=== PATIENT | male | born 1995 | race Caucasian/White ===

== ENCOUNTER 2024-03-19 21:05 | Emergency (ER) | payer MEDICAID ==
[~2024-03-19] VITALS: Ht 165.1 cm; Wt 72.7 kg
[~2024-03-19 21:05] MED LIST: NOCURR
[2024-03-19 21:27] VITALS: BP 137/87; PULSE 88; RESP 18; TEMP 98.1; O2SAT 98
== END 2024-03-19 23:20 | disposition left against medical advice (07) ==
LOC: EMS 21:05
DX: R59.0 Localized enlarged lymph nodes (principal); Z53.21 Procedure and treatment not carried out due to patient leaving prior to being seen by health care provider

== ENCOUNTER 2024-03-30 04:01 | Emergency (ER) | payer MEDICAID ==
[~2024-03-30] VITALS: Ht 172.7 cm; Wt 75.0 kg
[2024-03-30 04:11] VITALS: BP 181/109; PULSE 122; RESP 18; TEMP 98.2; O2SAT 99
== END 2024-03-30 05:46 | disposition home or self-care (01) ==
LOC: EMS 04:03
DX: N52.9 Male erectile dysfunction, unspecified (principal); R07.89 Other chest pain; I10 Essential (primary) hypertension; F17.210 Nicotine dependence, cigarettes, uncomplicated; Z86.19 Personal history of other infectious and parasitic diseases
CPT/HCPCS: 99281; Z7502

== ENCOUNTER 2024-03-30 07:00 | Emergency (ER) | payer MEDICAID ==
[~2024-03-30] VITALS: Ht 172.7 cm; Wt 75.0 kg
[2024-03-30 07:17] VITALS: BP 150/97; PULSE 98; RESP 16; TEMP 98.2; O2SAT 99
== END 2024-03-30 08:01 | disposition home or self-care (01) ==
LOC: EMS 07:03
DX: N52.9 Male erectile dysfunction, unspecified (principal); I10 Essential (primary) hypertension; F17.210 Nicotine dependence, cigarettes, uncomplicated; Z86.19 Personal history of other infectious and parasitic diseases
CPT/HCPCS: 99281; Z7502

== ENCOUNTER 2024-04-02 05:34 | Emergency (ER) | payer MEDICAID | END 2024-04-02 05:41 | disposition left against medical advice (07) | LOC: EMS 05:36 | DX: R06.02 Shortness of breath (principal); Z53.21 Procedure and treatment not carried out due to patient leaving prior to being seen by health care provider ==

== ENCOUNTER 2024-04-07 12:10 | Emergency (ER) | payer MEDICAID ==
[~2024-04-07] VITALS: Ht 172.7 cm; Wt 75.0 kg
[2024-04-07 12:19] VITALS: TEMP 98.7
[2024-04-07 13:14] LABS: BASOPHILS % (AUTO) 0.9 % (0.0-2.0); EOSINOPHILS % (AUTO) 2.6 % (1.0-6.0); HEMATOCRIT 43.6 % (41-53); HEMOGLOBIN 14.6 g/dL (13.5-17.5); LYMPHOCYTES # (AUTO) 1.7 K/uL (1.0-4.8); LYMPHOCYTES % (AUTO) 41.3 % (22.0-44.0); MEAN CORPUSCULAR HEMOGLOBIN 30.8 pg (26.0-34.0); MEAN CORPUSCULAR HGB CONC 33.5 G/dL (31.0-37.0); MEAN CORPUSCULAR VOLUME 92 fL (80-100); MONOCYTES # (AUTO) 0.4 K/uL (0.1-1.0); MONOCYTES % (AUTO) 10.5 % (2.0-9.0); NEUTROPHILS # (AUTO) 1.9 K/uL (1.8-7.7); NEUTROPHILS % (AUTO) 44.7 % (40.0-70.0); PLATELET COUNT (AUTO) 225 K/uL (150-450); RED BLOOD CELL COUNT(AUTO) 4.74 MIL/uL (4.50-5.90); RED CELL DISTRIBUTION WIDTH 13.8 % (11.5-14.5); WHITE BLOOD COUNT (AUTO) 4.2 K/uL (4.5-11.0)
[2024-04-07 13:32] LABS: ANION GAP 6 mmol/L (8-16); CALCIUM, TOTAL 8.8 mg/dL (8.8-10.5); CARBON DIOXIDE 31 mmol/L (22-29); CHLORIDE 102 mmol/L (98-107); CREATININE 0.94 mg/dL (0.60-1.30); GLOMERULAR FILTR. RATE CALC > 60 mL/min (>60); GLUCOSE,RANDOM 84 mg/dL (70-110); POTASSIUM 4.2 mmol/L (3.5-5.1); SODIUM SERUM 139 mmol/L (136-145); UREA NITROGEN, BLOOD 13 mg/dL (7-18)
[2024-04-07 13:37] LABS: ALANINE AMINOTRANSFERASE 25 U/L (12-78); ALBUMIN 3.2 g/dL (3.4-5.0); ALKALINE PHOSPHATASE 79 U/L (46-116); ASPARTATE AMINOTRANSFERASE 16 U/L (15-37); BILIRUBIN,TOTAL 0.2 mg/dL (0.1-1.0)
[2024-04-07 14:53] LABS: APPEARANCE,URINE CLEAR (CLEAR); BILIRUBIN,URINE NEGATIVE (NEGATIVE); COLOR,URINE YELLOW (YELLOW); GLUCOSE, URINE (UA) NEGATIVE (NEGATIVE); KETONES,URINE NEGATIVE (NEGATIVE); LEUKOCYTE ESTERASE ,URINE NEGATIVE (NEGATIVE); NITRATE,URINE NEGATIVE (NEGATIVE); OCCULT BLOOD,URINE NEGATIVE (NEGATIVE); PH,URINE 5.5 (5.0-8.0); PROTEIN,URINE NEGATIVE (NEGATIVE); SPECIFIC GRAVITIY, URINE 1.026 (1.003-1.030); UROBILINOGEN,URINE <=1.0 mg/dL (<=1.0)
[2024-04-07] MEDS ORDERED: 0.9% SODIUM CHLORIDE 10 ML SYRINGE IVP ONE (14:55)
[2024-04-07] MEDS: KETOROLAC TROMETHAMINE 30 MG/ML VIAL IVP ONE (14:55)
[2024-04-07] MEDS: ONDANSETRON HCL 4 MG/2 ML VIAL IVP ONE (14:55)
[2024-04-07] MEDS ORDERED: IOHEXOL 350 MG/ML 100 ML VIAL ONE (14:55)
[2024-04-07] MEDS: SODIUM CHLORIDE 0.9% 1,000 ML IV ONE (14:55)
[2024-04-07 15:07] LABS: LIPASE 103 U/L (16-77)
[2024-04-07 16:45] VITALS: BP 115/66; PULSE 63; RESP 16; O2SAT 99
[2024-04-07] MEDS ORDERED: DOCU-385 PO (17:01)
[2024-04-07] MEDS: DOCUSATE SODIUM 100 MG CAPSULE PO ONE (17:07)
[2024-04-08 08:06] LABS: HEPATITIS A ANTIBODY IGM Negative (Negative); HEPATITIS B CORE IGM Negative (Negative)
== END 2024-04-07 17:27 | disposition home or self-care (01) ==
LOC: EMS 13:17
DX: R10.31 Right lower quadrant pain (principal); I10 Essential (primary) hypertension; F17.210 Nicotine dependence, cigarettes, uncomplicated; Z86.19 Personal history of other infectious and parasitic diseases
CPT/HCPCS: 99285; 74177; 96374; 96361; 96375; 80053; 81003; 83690; 85025; 36415; 80074; J1885; Q9967; J2405; J7030

== ENCOUNTER 2024-05-19 07:08 | Emergency (ER) | payer MEDICAID ==
[~2024-05-19] VITALS: Ht 172.7 cm; Wt 90.0 kg
[~2024-05-19 07:08] MED LIST changes: +DOCU-385 PO
[2024-05-19 07:12] VITALS: TEMP 98.3
[2024-05-19] MEDS ORDERED: ACET-66 PO (07:22)
[2024-05-19] MEDS ORDERED: GUAIFDM PO (07:22)
[2024-05-19] MEDS ORDERED: IBUP-1554 PO (07:22)
[2024-05-19] MEDS ORDERED: CEPH-558 PO (07:26)
[2024-05-19] MEDS: ACETAMINOPHEN 500 MG TABLET PO ONE (07:43)
[2024-05-19] MEDS: LIDOCAINE 2% VISCOUS 15 ML SOLUTION UDCUP PO ONE (07:44)
[2024-05-19] MEDS: IBUPROFEN 600 MG TABLET PO ONE (07:44)
[2024-05-19 08:05] VITALS: BP 133/88; PULSE 76; RESP 18; O2SAT 97
== END 2024-05-19 08:11 | disposition home or self-care (01) ==
LOC: EMS 07:12
DX: J02.9 Acute pharyngitis, unspecified (principal); J34.89 Other specified disorders of nose and nasal sinuses; F17.210 Nicotine dependence, cigarettes, uncomplicated; I10 Essential (primary) hypertension; Z86.19 Personal history of other infectious and parasitic diseases
CPT/HCPCS: 99284; Z7502; Z7610

== ENCOUNTER 2024-06-28 03:43 | Emergency (ER) | payer MEDICAID, OTHER ==
[~2024-06-28 03:43] MED LIST changes: +ACET-66 PO; +CEPH-558 PO; +GUAIFDM PO; +IBUP-1554 PO
== END 2024-06-28 04:15 | disposition left against medical advice (07) ==
LOC: EMS 03:43
DX: S61.419A Laceration without foreign body of unspecified hand, initial encounter (principal); Z53.21 Procedure and treatment not carried out due to patient leaving prior to being seen by health care provider; X58.XXXA Exposure to other specified factors, initial encounter; Y93.89 Activity, other specified; Y92.89 Other specified places as the place of occurrence of the external cause; Y99.8 Other external cause status

== ENCOUNTER 2024-06-29 06:14 | Emergency (ER) | payer OTHER ==
[~2024-06-29] VITALS: Ht 165.1 cm; Wt 68.2 kg
[2024-06-29 06:24] VITALS: BP 139/95; PULSE 100; RESP 20; TEMP 98.2; O2SAT 98
[2024-06-30] MEDS ORDERED: CEPH-558 PO (23:24)
== END 2024-06-29 07:40 | disposition left against medical advice (07) ==
LOC: EMS 06:14
DX: M79.644 Pain in right finger(s) (principal); Z53.21 Procedure and treatment not carried out due to patient leaving prior to being seen by health care provider

== ENCOUNTER 2024-06-30 17:53 | Emergency (ER) | payer OTHER ==
[~2024-06-30] VITALS: Ht 170.2 cm; Wt 79.5 kg
[2024-06-30 18:02] VITALS: TEMP 98.2
[2024-06-30 21:30] VITALS: BP 113/67; PULSE 80; RESP 18; O2SAT 98
[2024-06-30] MEDS: CEPHALEXIN MONOHYDRATE 500 MG CAPSULE PO ONE (22:56)
[2024-06-30] MEDS ORDERED: CEPH-558 PO (23:24)
== END 2024-06-30 23:46 | disposition home or self-care (01) ==
LOC: EMS 17:53
DX: Z48.00 Encounter for change or removal of nonsurgical wound dressing (principal); I10 Essential (primary) hypertension; F17.210 Nicotine dependence, cigarettes, uncomplicated; Z86.19 Personal history of other infectious and parasitic diseases
CPT/HCPCS: 99283

== ENCOUNTER 2024-08-03 17:19 | Emergency (ER) | payer OTHER ==
[~2024-08-03] VITALS: Ht 175.3 cm; Wt 75.0 kg
[2024-08-03 17:37] VITALS: BP 135/80; PULSE 83; RESP 18; TEMP 97.9; O2SAT 99
== END 2024-08-03 20:37 | disposition left against medical advice (07) ==
LOC: EMS 17:19
DX: R10.30 Lower abdominal pain, unspecified (principal); Z53.21 Procedure and treatment not carried out due to patient leaving prior to being seen by health care provider

== ENCOUNTER 2024-09-27 19:04 | Emergency (ER) | payer OTHER ==
[~2024-09-27] VITALS: Ht 170.2 cm; Wt 70.5 kg
[2024-09-27 19:41] LABS: PLATELET COUNT (AUTO) 246 K/uL (150-450); RED BLOOD CELL COUNT(AUTO) 4.62 MIL/uL (4.50-5.90); RED CELL DISTRIBUTION WIDTH 14.1 % (11.5-14.5); WHITE BLOOD COUNT (AUTO) 12.2 K/uL (4.5-11.0)
[2024-09-27 19:45] LABS: CALCIUM, TOTAL 9.7 mg/dL (8.8-10.5); CREATININE 1.33 mg/dL (0.60-1.30); GLOMERULAR FILTR. RATE CALC > 60 mL/min (>60); GLUCOSE,RANDOM 120 mg/dL (70-110); SODIUM SERUM 145 mmol/L (136-145); UREA NITROGEN, BLOOD 30 mg/dL (7-18)
[2024-09-27 20:05] LABS: COVID AG,FIA SOURCE NASAL SWAB
[2024-09-27 20:28] LABS: SARS-COV2 (COVID) ANTIGEN,FIA Negative (Negative)
[2024-09-28 00:46] LABS: APPEARANCE,URINE CLEAR (CLEAR); GLUCOSE, URINE (UA) NEGATIVE (NEGATIVE); LEUKOCYTE ESTERASE ,URINE NEGATIVE (NEGATIVE); NITRATE,URINE NEGATIVE (NEGATIVE); OCCULT BLOOD,URINE NEGATIVE (NEGATIVE); PH,URINE DRUG SCREEN 6.0 (5.0-8.0); SPECIFIC GRAVITIY, URINE 1.041 (1.003-1.030)
[2024-09-28 00:52] LABS: ALCOHOL, URINE DRUG SCREEN NEGATIVE (NEGATIVE); AMPHET/METH SCREEN,URINE POSITIVE (NEGATIVE); BARBITURATE SCREEN, URINE NEGATIVE (NEGATIVE); CANNABINOID SCREEN,URINE POSITIVE (NEGATIVE); COCAINE SCREEN,URINE NEGATIVE (NEGATIVE); METHADONE SCREEN, URINE POSITIVE (NEGATIVE)
[2024-09-28 04:30] VITALS: BP 136/88; PULSE 89; RESP 15; O2SAT 100
== END 2024-09-28 06:03 | disposition home or self-care (01) ==
LOC: EMS 19:04
DX: S51.811A Laceration without foreign body of right forearm, initial encounter (principal); F20.9 Schizophrenia, unspecified; I10 Essential (primary) hypertension; F17.210 Nicotine dependence, cigarettes, uncomplicated; F11.90 Opioid use, unspecified, uncomplicated; Z79.899 Other long term (current) drug therapy; Z78.1 Physical restraint status; Z20.822 Contact with and (suspected) exposure to COVID-19; Z86.19 Personal history of other infectious and parasitic diseases; W26.8XXA Contact with other sharp object(s), not elsewhere classified, initial encounter; Y93.89 Activity, other specified; Y92.89 Other specified places as the place of occurrence of the external cause; Y99.8 Other external cause status
CPT/HCPCS: 99291; 87426; 80048; 81003; 85025; 36415; 12002; 80307; G0480

== ENCOUNTER → 2024-09-27 | Emergency (ER) | payer OTHER | END | disposition left against medical advice (07) | LOC: EMS 16:38 | DX: M79.606 Pain in leg, unspecified (principal); Z53.21 Procedure and treatment not carried out due to patient leaving prior to being seen by health care provider ==

== ENCOUNTER 2024-11-15 15:51 | Emergency (ER) | payer OTHER | END 2024-11-15 16:14 | disposition left against medical advice (07) | LOC: EMS 15:51 | DX: M79.10 Myalgia, unspecified site (principal); Z53.21 Procedure and treatment not carried out due to patient leaving prior to being seen by health care provider ==